=== PATIENT | female | born 1965 | race Two or more races ===

== ENCOUNTER 2018-09-10 04:55 | Emergency (ER) | payer SELFPAY ==
[~2018-09-10] VITALS: Ht 165.1 cm; Wt 86.5 kg
[2018-09-10 05:29] LABS: BASOPHILS % (AUTO) 0.4 % (0-1); EOSINOPHILS # (AUTO) 0.2 X10'3 (0-0.9); EOSINOPHILS % (AUTO) 1.4 % (0-6); HEMATOCRIT 40.2 % (35.0-45.0); HEMOGLOBIN 13.2 g/dl (12.0-16.0); MEAN CORPUSCULAR HEMOGLOBIN 26.9 PG (27.0-31.0); MEAN CORPUSCULAR HGB CONC 32.9 g/dL (33.0-36.5); MEAN CORPUSCULAR VOLUME 81.8 FL (78-98); MEAN PLATELET VOLUME 9.2 FL (7.4-10.4); MONOCYTES # (AUTO) 0.5 X10'3 (0-0.9); MONOCYTES % (AUTO) 4.2 % (2-12); NEUTROPHILS # (AUTO) 10.8 X10'3 (1.8-7.7); PLATELET COUNT 270 X10'3 (140-440); RED BLOOD COUNT 4.91 X10'6 (4.20-5.60); RED CELL DISTRIBUTION WIDTH 15.2 % (11.5-14.5); WHITE BLOOD COUNT 12.6 X10'3 (4.5-11.0)
--- NOTE | 2018-09-10 05:34 | NUR ---
AT BEDSIDE WITH PT
[2018-09-10 05:36] LABS: URINE HCG NEGATIVE (NEG)
[2018-09-10 05:40] LABS: CLARITY,URINE CLEAR (Clear); COLOR,URINE YELLOW (Yellow); GLUCOSE, URINE 500 mg/dl (Neg); KETONES,URINE 40 mg/dl (Neg); LEUKOCYTE ESTERASE ,URINE NEGATIVE (Neg); NITRITES, URINE NEGATIVE (Neg); OCCULT BLOOD,URINE TRACE-INTACT (Neg); PROTEIN,URINE 100 mg/dl (Neg)
[2018-09-10 05:44] LABS: ANION GAP 14 (8-16); BLOOD UREA NITROGEN 12 MG/DL (7-18); CHLORIDE 101 MMOL/L (99-107); CREATININE 0.73 MG/DL (0.40-0.90); GLUCOSE 239 MG/DL (70-104); POTASSIUM 3.4 MMOL/L (3.5-5.1); SODIUM 137 MMOL/L (135-145); TOTAL CARBON DIOXIDE 21.7 MMOL/L (24-32)
[2018-09-10 05:45] LABS: ALANINE AMINOTRANSFERASE 91 U/L (12-78); ALBUMIN 4.1 G/DL (3.4-5.0); ALBUMIN/GLOBULIN RATIO 1.1 (1.1-1.5); ALKALINE PHOSPHATASE 87 IU/L (46-116); AMYLASE 43 U/L (25-115); ASPARTATE AMINO TRANSFERASE 42 U/L (10-37); BILIRUBIN,TOTAL 0.8 MG/DL (0.1-1.0); BUN/CREATININE RATIO 16.4 (6.6-38.0); LIPASE 184 U/L (73-393); eGFR 84 ML/MIN
[2018-09-10] MEDS ORDERED: LORazepam 2 mg/ml vial IV ONE (05:45)
[2018-09-10] MEDS ORDERED: pantoprazole 40 MG vial IV ONE (05:45)
[2018-09-10] MEDS ORDERED: normal saline 1000ML IV soln IVB ONE (05:45)
[2018-09-10] MEDS ORDERED: morphine 4 MG/ML inj SYRINge IV ONE (05:45)
[2018-09-10] MEDS ORDERED: ondansetron/PF 4mg/2ml inj IV ONE (05:45)
[2018-09-10 05:47] LABS: UA COLLECTION TYPE CLN CATCH MIDSTREAM
[2018-09-10 05:49] LABS: BACTERIA,URINE 1+ /HPF (Neg); MUCUS STRANDS FEW /LPF (Neg); RBC,URINE 0-2 /HPF (0-2); SQUAMOUS EPITHELIAL CELL,UR MANY /LPF (FEW); WBC,URINE 0-4 /HPF (0-4)
[2018-09-10 05:51] LABS: PROTHROMBIN TIME 10.2 SECONDS (9.0-12.0)
[2018-09-10 06:43] VITALS: BP 151/83
[2018-09-10] MEDS ORDERED: PANT-47 PO (07:42)
[2018-09-10] MEDS ORDERED: ONDA8TAB13 PO (07:42)
[2018-09-10] MEDS ORDERED: HYDR-3965 PO (07:42)
== END 2018-09-10 09:05 | disposition home or self-care (01) ==
LOC: ER 04:56
DX: R10.11 Right upper quadrant pain (principal); R11.2 Nausea with vomiting, unspecified; R10.13 Epigastric pain; Z79.899 Other long term (current) drug therapy
CPT/HCPCS: 36415; 76700; 80053; 81001; 81025; 82150; 83690; 85025; 85610; 96361; 96374; 96375; 99284; C9113; J2060; J2270; J2405; J7030

== ENCOUNTER 2019-06-01 09:33 | Day surgery (SDC) | payer OTHER ==
[~2019-06-01 09:33] MED LIST: ONDA8TAB13 PO; PANT-47 PO
[2019-06-01] MEDS ORDERED: LIDOcaine 2% 5ml jelly ONE (10:13)
== END 2019-06-01 10:42 | disposition home or self-care (01) ==
LOC: WOUND CARE 09:33
PROVIDERS: ATTEND Surgery
DX: E11.622 Type 2 diabetes mellitus with other skin ulcer (principal); L97.221 Non-pressure chronic ulcer of left calf limited to breakdown of skin; L73.9 Follicular disorder, unspecified; J45.909 Unspecified asthma, uncomplicated; R21 Rash and other nonspecific skin eruption; Z79.899 Other long term (current) drug therapy
CPT/HCPCS: 82948; 87070; 87075; 87077; 87102; 87176; 87186; 97597; A4663; A6021; A6154; A6446

== ENCOUNTER 2020-01-19 17:16 | Emergency (ER) | payer OTHER ==
[~2020-01-19] VITALS: Ht 165.1 cm; Wt 80.9 kg
[2020-01-19] MEDS ORDERED: aspirin 81mg tab.chew PO ONE (17:20)
[2020-01-19 18:06] LABS: BASOPHILS % (AUTO) 0.4 % (0-1); EOSINOPHILS # (AUTO) 0.2 X10'3 (0-0.9); EOSINOPHILS % (AUTO) 2.3 % (0-6); HEMATOCRIT 34.1 % (35.0-45.0); HEMOGLOBIN 11.1 g/dl (12.0-16.0); LYMPHOCYTES # (AUTO) 1.7 X10'3 (1.1-4.8); LYMPHOCYTES % (AUTO) 20.4 % (21-51); MEAN CORPUSCULAR HEMOGLOBIN 27.2 PG (27.0-31.0); MEAN CORPUSCULAR HGB CONC 32.6 g/dL (33.0-36.5); MEAN CORPUSCULAR VOLUME 83.4 FL (78-98); MEAN PLATELET VOLUME 8.8 FL (7.4-10.4); MONOCYTES # (AUTO) 0.6 X10'3 (0-0.9); MONOCYTES % (AUTO) 6.8 % (2-12); NEUTROPHILS # (AUTO) 5.7 X10'3 (1.8-7.7); NEUTROPHILS % (AUTO) 70.1 % (42-75); PLATELET COUNT 245 X10'3 (140-440); RED BLOOD COUNT 4.09 X10'6 (4.20-5.60); RED CELL DISTRIBUTION WIDTH 14.6 % (11.5-14.5); WHITE BLOOD COUNT 8.1 X10'3 (4.5-11.0)
[2020-01-19 18:11] LABS: D-DIMER 0.29 MG/L FEU (0-0.50)
[2020-01-19 18:16] LABS: ALANINE AMINOTRANSFERASE 28 U/L (12-78); ALBUMIN 3.7 G/DL (3.4-5.0); ALBUMIN/GLOBULIN RATIO 1.1 (1.1-1.5); ALKALINE PHOSPHATASE 72 IU/L (46-116); ANION GAP 11 (8-16); ASPARTATE AMINO TRANSFERASE 16 U/L (10-37); BILIRUBIN,TOTAL 0.3 MG/DL (0.1-1.0); BLOOD UREA NITROGEN 15 MG/DL (7-18); BUN/CREATININE RATIO 20.3 (6.6-38.0); CALCIUM 8.5 MG/DL (8.5-10.1); CHLORIDE 107 MMOL/L (99-107); CREATININE 0.74 MG/DL (0.40-0.90); GLUCOSE 127 MG/DL (70-104); POTASSIUM 3.5 MMOL/L (3.5-5.1); SODIUM 144 MMOL/L (135-145); TOTAL PROTEIN 7.2 G/DL (6.4-8.2); eGFR 82 ML/MIN
[2020-01-19 18:22] LABS: MAGNESIUM 1.6 MG/DL (1.5-2.4)
[2020-01-19 18:42] VITALS: BP 158/92
== END 2020-01-19 18:46 | disposition home or self-care (01) ==
LOC: ER 17:16
DX: R07.81 Pleurodynia (principal); E11.9 Type 2 diabetes mellitus without complications; Z79.899 Other long term (current) drug therapy
CPT/HCPCS: 36415; 71045; 80053; 83735; 83880; 84484; 85025; 85379; 93005; 99285

== ENCOUNTER 2022-02-27 02:14 | Emergency (ER) | payer OTHER ==
[~2022-02-27] VITALS: Ht 165.1 cm; Wt 75.5 kg
[2022-02-27] MEDS ORDERED: metroNIDAZOLE-Flagyl 500mg/NS 100 ML IV STA (02:27)
[2022-02-27] MEDS ORDERED: normal saline 1000ML IV soln IVB ONE (02:30)
[2022-02-27] MEDS ORDERED: ondansetron/PF 4mg/2ml inj IV ONE (02:30)
[2022-02-27] MEDS ORDERED: morphine 4 MG/ML inj SYRINge IV ONE (02:30)
[2022-02-27 02:33] VITALS: BP 128/95
[2022-02-27] MEDS ORDERED: ONDA4TAB12 PO (03:24)
[2022-02-27] MEDS ORDERED: METR-159 PO (03:24)
[2022-02-27 03:31] LABS: BASOPHILS % (AUTO) 0.2 % (0-1); EOSINOPHILS % (AUTO) 0.4 % (0-6); HEMATOCRIT 42.6 % (35.0-45.0); HEMOGLOBIN 14.6 g/dl (12.0-16.0); LYMPHOCYTES # (AUTO) 0.8 X10'3 (1.1-4.8); LYMPHOCYTES % (AUTO) 17.3 % (21-51); MEAN CORPUSCULAR HEMOGLOBIN 32.4 PG (27.0-31.0); MEAN CORPUSCULAR HGB CONC 34.3 g/dL (33.0-36.5); MEAN CORPUSCULAR VOLUME 94.3 FL (78-98); MEAN PLATELET VOLUME 9.2 FL (7.4-10.4); MONOCYTES # (AUTO) 0.3 X10'3 (0-0.9); MONOCYTES % (AUTO) 7.7 % (2-12); NEUTROPHILS # (AUTO) 3.3 X10'3 (1.8-7.7); NEUTROPHILS % (AUTO) 74.4 % (42-75); PLATELET COUNT 185 X10'3 (140-440); RED BLOOD COUNT 4.52 X10'6 (4.20-5.60); WHITE BLOOD COUNT 4.4 X10'3 (4.5-11.0)
[2022-02-27 03:46] LABS: ALANINE AMINOTRANSFERASE 84 U/L (12-78); ALBUMIN 3.7 G/DL (3.4-5.0); ALKALINE PHOSPHATASE 79 IU/L (46-116); ANION GAP 11 (8-16); ASPARTATE AMINO TRANSFERASE 38 U/L (10-37); BILIRUBIN,TOTAL 0.5 MG/DL (0.1-1.0); BLOOD UREA NITROGEN 12 MG/DL (7-18); BUN/CREATININE RATIO 14.1 (6.6-38.0); CALCIUM 8.4 MG/DL (8.5-10.1); CHLORIDE 103 MMOL/L (99-107); CREATININE 0.85 MG/DL (0.40-0.90); GLUCOSE 317 MG/DL (70-104); LIPASE 118 U/L (73-393); POTASSIUM 3.9 MMOL/L (3.5-5.1); SODIUM 136 MMOL/L (135-145); TOTAL CARBON DIOXIDE 21.8 MMOL/L (24-32); TOTAL PROTEIN 7.5 G/DL (6.4-8.2); eGFR 70 ML/MIN
== END 2022-02-27 04:48 | disposition home or self-care (01) ==
LOC: ER 02:15
DX: K52.9 Noninfective gastroenteritis and colitis, unspecified (principal); E11.9 Type 2 diabetes mellitus without complications
CPT/HCPCS: 36415; 80053; 83690; 85025; 93005; 96365; 96375; 99284; J2270; J2405; J3490; J7030

== ENCOUNTER 2025-03-25 11:10 | Observation (INO) | payer OTHER ==
[~2025-03-25] VITALS: Ht 165.1 cm; Wt 79.5 kg
[~2025-03-25 11:10] MED LIST changes: +ONDA-243 PO; +ONDA-245 PO; -ONDA8TAB13 PO
[2025-03-25 11:31] LABS: MEAN PLATELET VOLUME 8.5 FL (7.4-10.4); RED CELL DISTRIBUTION WIDTH 12.7 % (11.5-14.5)
--- NOTE | 2025-03-25 11:31 | Physician Documentation ---
History of Present Illness General Chief Complaint: Stroke Alert Stated Complaint: FACIAL DROOPING Time Seen by MD: 11:31 Primary Medical Doctor: Dr. Pascual History of Present Illness Initial Comments Patient is a 59-year-old female who presents to the emergency room with a complaint of facial weakness on the right side and some slurred speech. Patient states she was looking in the mirror and noticed the drooping of her right side of her face at approximately 8:30 a.m. this morning. The patient denies any focal weakness other than the face. Patient denies any headache patient's symptoms are moderate and persistent. Patient has no history of stroke. The patient has no recent fevers chills nausea or vomiting or diarrhea. The patient states she has been placed on Augmentin for ear pain and she has a bump in her right ear canal she also states she was dizzy last night. Patient does have type 2 diabetes. She states she is feels slightly confused and she feels like she has slight difficulty with word finding. Medication Reconciliation Allergies: Coded Allergies: No Known Allergies (Unverified , 09/10/18) Scheduled Glimepiride* (Amaryl*), 1 TAB PO DAILY, (Reported) Insulin Degludec (Tresiba), 48 UNIT SQ HS, (Reported) Meloxicam (Meloxicam), 1 TAB PO DAILY, (Reported) Metformin HCl (Metformin HCl), 1 TAB PO BID, (Reported) Pantoprazole Sodium (PROTONIX tablet), 1 TAB PO DAILY Prednisone (Prednisone), 5 TAB PO DAILY Prednisone (Prednisone), 5 TAB PO DAILY Tirzepatide (Mounjaro), 2.5 MG SQ Q7D, (Reported) Valacyclovir HCl (Valacyclovir), 1 TAB PO Q8H Valacyclovir HCl (Valacyclovir), 1 TAB PO Q8H Scheduled PRN ONDANSETRON ODT 4mg tablet (Ondansetron Odt), 4 MG PO 5XD PRN for nausea Discontinued Medications Ondansetron 8mg ODT (Ondansetron Odt), 1 TAB PO Q6H Discontinued Reason: patient no longer taking Past Medical History Past Medical History: Diabetes Past Surgical History: noncontributory Alcohol Use: None Drug Use: none Lives In: Home Occupation: employed Review of Systems All Other Systems at this time: Reviewed and Negative Physical Exam Physical Exam Vital Signs: Temperature: 97.7, Source: Temporal, Heart Rate: 102, Respiratory Rate: 16, BP: 186/112, Pulse Oximetry: 100, Weight: 79.550 Physical Exam VITALS: Reviewed and as above. GENERAL: Alert, no apparent distress. HEENT: Normocephalic, atraumatic, PERRL, EOMI, dry mucosa, no erythema RESPIRATORY: Lungs clear, normal breath sounds, no respiratory distress. CHEST: No accessory muscle use, no retractions CV: Regular rate, rhythm, no edema, no murmur, No: JVD GI: Soft, non-tender, bowels sounds present, no rebound, guarding, or rigidity BACK: No CVA tenderness, or swelling MUSCULOSKELETAL: No deformities, no edema SKIN: Warm and dry, no rash NEURO: Oriented x4, No motor or sensory deficit patient does have some slight right facial weakness the patient can lift her eyebrows on both sides and it is unclear whether or not her forehead is involved I do not appreciate any significant forehead involvement. The otherwise her cranial nerves are intact in his strength is 5/5 in all four extremities. PSYCH: Normal mood and affect, no agitation Progress Results/Orders Results/Orders Orders - OHLATIF DEMPSEY MD Monitor (03/25/25 11:17) 2 Large Bore Ivs (03/25/25 11:17) Chest,Single View (03/25/25 11:42) Accucheck (03/25/25 11:17) Ct Stroke Alert (03/25/25 11:24) [place] Prov.Neuro Consult (03/25/25 11:17) Cta Neck/Head (03/25/25 11:33) Mri Head (03/25/25 15:30) Page Hospitalist (03/25/25 17:08) Fill Out Med Reconciliation (03/25/25 17:08) Completed Orders - OHLATIF DEMPSYE MD Cbc/Diff (03/25/25 11:17) Electrocardiogram (03/25/25 11:17) Chest,Single View (03/25/25 11:42) Ct Stroke Alert (03/25/25 11:24) BMP (03/25/25 11:17) PTT (03/25/25 11:17) Pt Inr (03/25/25 11:17) Cta Neck/Head (03/25/25 11:33) Mri Head (03/25/25 15:30) Acyclovir 800mg Tablet (Zovirax Tablet) (03/25/25 12:30) Urinalysis, Cult If Indicated (03/25/25 13:10) Hydrocodone/Apap 10/325 ([place] 10/325mg (03/25/25 14:20) Meclizine Tablets (Antivert Tablet) (03/25/25 17:10) Gadoterate Meglum 7.5mmol/15ml (Dotarem (03/25/25 18:01) Hgb A1c (03/25/25 11:18) Vital Signs 03/25/25 03/25/25 03/25/25 03/25/25 11:14 11:41 11:45 12:00 Temp 97.7 Pulse 102 97 100 95 Resp 16 18 B/P (MAP) 186/112 173/91 (118) 173/91 161/97 Pulse Ox 100 100 98 03/25/25 03/25/25 03/25/25 03/25/25 12:15 12:15 12:30 12:40 Pulse 97 97 97 Resp 17 19 B/P (MAP) 165/103 182/107 169/102 (124) Pulse Ox 99 95 03/25/25 03/25/25 03/25/25 03/25/25 12:45 13:00 13:15 13:30 Pulse 97 97 93 97 B/P (MAP) 169/102 168/102 171/103 163/99 Pulse Ox 98 97 93 03/25/25 03/25/25 03/25/25 03/25/25 13:40 13:45 14:00 14:15 Pulse 97 97 102 96 Resp 20 B/P (MAP) 157/101 (119) 157/101 167/114 160/106 03/25/25 03/25/25 03/25/25 03/25/25 14:30 14:42 14:43 16:15 Pulse 94 88 88 Resp 17 17 16 B/P (MAP) 137/86 147/87 (107) 155/86 (109) Pulse Ox 97 100 96 03/25/25 03/25/25 03/25/25/22/25 16:16 17:43 18:20 18:34 Pulse 91 91 98 Resp 16 15 16 16 B/P (MAP) 155/86 124/79 (94) 111/87 (95) Pulse Ox 97 98 98 Laboratory Tests Test 03/25/25 11:13 03/25/25 11:18 03/25/25 13:08 Glucometer 152 H White Blood Count 7.6 Red Blood Count 4.69 Hemoglobin 14.9 Hematocrit 42.8 Mean Corpuscular Volume 91.3 Mean Corpuscular Hemoglobin 31.8 H Mean Corpuscular Hemoglobin Concent 34.9 Red Cell Distribution Width 12.7 Platelet Count 208 Mean Platelet Volume 8.5 Neutrophils (%) (Auto) 76.0 H Lymphocytes (%) (Auto) 16.7 L Monocytes (%) (Auto) 6.0 Eosinophils (%) (Auto) 1.0 Basophils (%) (Auto) 0.3 Neutrophils # (Auto) 5.8 Lymphocytes # (Auto) 1.3 Monocytes # (Auto) 0.5 Eosinophils # (Auto) 0.1 Basophils # (Auto) 0.0 CBC Comment Prothrombin Time 10.3 INR International Normalized Ratio 1.0 Activated Partial Thromboplast Time 25 Coagulation Comments Sodium Level 139 Potassium Level 3.8 Chloride Level 103 Carbon Dioxide Level 27.7 Anion Gap 8 Blood Urea Nitrogen 14 Creatinine 0.87 Estimated GFR/1.73 m2 67 BUN/Creatinine Ratio 16.1 Glucose Level 158 H Hemoglobin A1c 11.3 H Calcium Level 9.2 Albumin 4.2 Chemistry Comments Urine Specimen Description Cln catch midstream Urine Color Yellow Urine Clarity Clear Urine pH 6.5 Urine Specific [place] <=1.005 Urine Protein Negative Urine Glucose (UA) 100 H Urine Ketones Trace H Urine Occult Blood Negative Urine Nitrite Negative Urine Bilirubin Negative Urine Urobilinogen 0.2 Urine Leukocyte Esterase Negative Urine Culture Indicated Not ind Volume Urine Centrifuged 10 ml Urine Comment EKG/XRAY/CT/US/VASC/MRI Chest X-Ray : Additional Comments Patient: MARIZA HOLLAND Medical Record: [id number] : 1965, Age: 59 Sex: Female Location: ER Patient Status: REG ER Service Date/Time: 03/25/25/ 1142 Ordering Physician: ATIF TRAN MD Exam: CHEST,SINGLE VIEW DI CHEST,SINGLE VIEW, HISTORY: Stroke Alert COMPARISON: None None TECHNICAL DATA: 1 view of the chest was obtained. FINDINGS: Lines and tubes: None Cardiomediastinal silhouette: normal Pulmonary vasculature: normal Lung expansion: normal Lung airspace: normal Lung interstitium: normal Pleura: normal Pneumothorax: no Bones: Unremarkable Other: no IMPRESSION: No acute intrathoracic abnormality. Electronically Signed by:COLT CALLE MD Date & Time: 03/25/251203 Dictated by: COLT CALLE MD Dictation date and time: 03/25/25 120 Primary Care Provider: NO PRIMARY CARE PROVIDER cc: ATIF TRAN MD ~ CT : Impression Patient: MARIZA HOLLAND Medical Record: [id number] : 1965, Age: 59 Sex: Female Location: ER Patient Status: [facility] ER Service Date/Time: 03/25/251123 Ordering Physician: ATIF TRAN MD Exam: CT STROKE ALERT CT CT STROKE ALERT Indication: Stroke Alert EXAM DATE: 03/25/2025 11:18 AM COMPARISON: None TECHNIQUE: CT of the head without intravenous contrast. RADIATION DOSE: CTDIvol: 67 mGy, DLP: 1192 mGy*cm FINDINGS: There is no intracranial hemorrhage. There is no extra-axial fluid, mass, mass effect or midline shift. The ventricles are midline and normal in size. Basilar cisterns are patent. Ellis-white differentiation is maintained. Mastoids well pneumatized. 1 cm right maxillary sinus mucosal retention cyst/ polyp.. Imaged portion of the orbits are unremarkable. IMPRESSION: No intracranial hemorrhage or mass effect. Electronically Signed by:VIV ANDRADE MD Date & Time: 03/25/25 114 Dictated by: VIV ANDRADE MD Dictation date and time: 03/25/251123 Primary Care Provider: NO PRIMARY CARE PROVIDER cc: ATIF TRAN MD ~ Medical Decision Making Findings The patient was brought into the emergency department for a complaint of facial weakness on the right side and some slight confusion and she was called a stroke alert on arrival to the emergency department. The patient had right-sided facial droop it was difficult to discern whether or not the forehead was involved. The patient does also complain of a painful lesion in her right here and also has had tearing from the right eye. 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 The patient was complaining of the significant vertigo that she has had over last several days and feels unsteady in her gait the patient was offered admission the patient will be admitted to the hospitalist service the prior hospitalizations were reviewed patient's MRI was reviewed patient's imaging of her head was also reviewed her CT scan was reviewed in her CTA was reviewed I have reviewed the radiologist's impression and agree with the impressions. The patient's chest x-ray was reviewed independently by myself and showed a normal mediastinum normal lung james and a normal cardiac silhouette. The patient's EKG was reviewed by me it demonstrated a sinus rhythm time of the EKG was 1146 the heart rate was 91 the EKG was a normal axis sinus rhythm with no abnormal ST segments or Q-waves it was interpreted as a normal EKG the patient's pulse oximetry was interpreted as normal and adequate and her radiation monitor was interpreted as a sinus rhythm. The patient did require critical care time as she was initially a stroke alert. Departure Admitted to Inpatient Unit: yes, to hospitalist Impression: Primary Impression: Dizziness Additional Impression: Nobles's palsy Referrals: NO PRIMARY CARE PROVIDER (PCP) Prescriptions Valacyclovir HCl (Valacyclovir) 1,000 Mg Tablet 1 TAB PO Q8H for 6 Days, #18 TAB 0 Refills Prov: MARK DAVIS DO 03/26/25 Prednisone (Prednisone) 10 Mg Tablet 5 TAB PO DAILY, #40 TAB 0 Refills Take 5 tab QD x 4 days then 4 tab QD x 2 days then 3 tab QD x 2 days then 2 tab QD x 2 days then 1 tab QD x 2 days, Prov: MARK DAVIS DO 03/26/25 Valacyclovir HCl (Valacyclovir) 1,000 Mg Tablet 1 TAB PO Q8H for 6 Days, #18 TAB 0 Refills Prov: MARK DAVIS DO 03/26/25 Prednisone (Prednisone) 10 Mg Tablet 5 TAB PO DAILY, #40 TAB 0 Refills Take 5 tab QD x 4 days then 4 tab QD x 2 days then 3 tab QD x 2 days then 2 tab QD x 2 days then 1 tab QD x 2 days, Prov: MARK DAVIS DO 03/26/25 Critical Care Note Total Time (mins): 35 Critical Care Note The very real possibility of a deterioration of this patient's condition required the highest level of my preparedness for sudden, emergent intervention. I provided critical care services, which included medication orders, frequent reevaluations of the patient's condition and response to treatment, ordering and reviewing test results, and discussing the case with various consultants. Excludes time spent performing separately billable procedures. The critical care time associated with the care of the patient was 35 minutes. Signature Scribe Signature: no scribe Attestation: The note accurately reflects work and decisions made by me.Atif Tran MD 03/27/25 22:42 ATIF TRAN MD Mar 25, 2025 11:31
[2025-03-25 11:39] LABS: CREATININE 0.87 MG/DL (0.40-0.90); TOTAL CARBON DIOXIDE 27.7 MMOL/L (24-32); eCRCL 64 ML/MIN; eGFR 67 ML/MIN
--- NOTE | 2025-03-25 11:40 | RADIOLOGY REPORT ---
CT CT STROKE ALERT Indication: Stroke Alert EXAM DATE: 03/25/2025 11:18 AM COMPARISON: None TECHNIQUE: CT of the head without intravenous contrast. RADIATION DOSE: CTDIvol: 67 mGy, DLP: 1192 mGy*cm FINDINGS: There is no intracranial hemorrhage. There is no extra-axial fluid, mass, mass effect or midline shif t. The ventricles are midline and normal in size. Basilar cisterns are patent. Ellis-white differentia tion is maintained. Mastoids well pneumatized. 1 cm right maxillary sinus mucosal retention cyst/ polyp.. Imaged portion of the orbits are unremarkable. IMPRESSION: No intracranial hemorrhage or mass effect.
[2025-03-25 11:43] LABS: APTT 25 SECONDS (22-32); INR 1.0 INR
--- NOTE | 2025-03-25 11:48 | ELECTROCARDIOGRAPH REPORT ---
[facility] Test Date: 2025-03-25 Test Time: 11:46:33 Pat Name: MARIZA HOLLAND Department: [facility]- Patient ID: [id number] Room: Gender: F Clerical Adjudicator: : 1965 Requested By: ATIF MARIN Order Number: [id number] Reading MD: Measurements Intervals Olds Rate: 91 P: 37 SC: 174 QRS: 36 QRSD: 93 T: 27 QT: 364 QTc: 448 Interpretive Statements Sinus rhythm Baseline wander in lead(s) I,III,aVL,V4,V5 Please click the below link to view image of tracing.
--- NOTE | 2025-03-25 11:56 | RADIOLOGY REPORT ---
CT CTA NECK/HEAD INDICATION: STROKE ALERT EXAM DATE: 03/25/2025 11:23 AM COMPARISON: CT CT STROKE ALERT on DOS: 03/25/25 RADIATION DOSE: CTDIvol: 16 mGy, DLP: 621 mGy*cm PROCEDURE: CT angiogram images were obtained of the head and neck. Coronal and sagittal reformatted i mages were created as well as 3D and/or MIP reconstructions. All CT scans at this medical facility are performed using dose modulation techniques as appropriate t o a performed exam including the following: Automated exposure control was utilized; adjustment of th e MA and/or KV according to patient size; and use of iterative reconstruction technique. FINDINGS: Head: Please see CT head from same day for further details. On the CT angiographic images, the internal carotid arteries are normal in caliber from the skull bas e to their bifurcations. The anterior and middle cerebral arteries and their branches appear normal. The anterior communicating artery appears normal. The bilateral posterior communicating arteries are not well seen and may be absent or hypoplastic. The vertebral arteries are codominant. The vertebral, basilar, superior cerebellar, and posterior cerebral arteries are normal in caliber. No aneurysm, ar teriovenous malformation, or stenosis is visible. Neck: The common carotid, internal carotid, external carotid, and vertebral arteries are normal in caliber. The left vertebral artery is dominant. The visualized intracranial arteries are normal. There is no evidence of contrast extravasation, filling defects, stenosis, or dissection. The pharynx and airway are normal. The thyroid, submandibular, and parotid glands appear unremarkable . No lymphadenopathy is seen. The visualized intracranial structures are unremarkable. IMPRESSION: No acute abnormal CT angiographic findings of the head and neck without large vessel occlusion or dis section.
--- NOTE | 2025-03-25 12:07 | RADIOLOGY REPORT ---
DI CHEST,SINGLE VIEW, HISTORY: Stroke Alert COMPARISON: None None TECHNICAL DATA: 1 view of the chest was obtained. FINDINGS: Lines and tubes: None Cardiomediastinal silhouette: normal Pulmonary vasculature: normal Lung expansion: normal Lung airspace: normal Lung interstitium: normal Pleura: normal Pneumothorax: no Bones: Unremarkable Other: no IMPRESSION: No acute intrathoracic abnormality.
--- NOTE | 2025-03-25 12:33 | [facility] CONSULT REPORT ---
[facility] Procedure Note [facility] Procedure Note Consult [facility] Note # Demographics Consult Type: Acute Stroke Level 1 (0-4.5 hrs) Patient Location: Emergency Room First Name: erika Last Name: SKYLER Date of : 1965 Age: 59 Gender: Female Facility: [facility] Time of Initial Page (): 03/25/2025 12:10 First Contact with Site (): 03/25/2025 12:10 # HPI History: Having difficulty brushing teeth today. Also noticed Drooling out of her mouth and word finding difficulty today. Ed noticed a vesicle in the left ear. But doesnt appear as herpetic lesion per Ed. Also complaining of dizziness over night. Sbp 180s in Ed Last Known Normal: 03/24 noon # Scores Time of exam and NIHSS (): 03/25/2025 12:20 Level of Consciousness 1a: [0] = Alert; keenly responsive LOC Questions 1b: [0] = Answers both questions correctly LOC Commands 1c: [0] = Performs both tasks correctly Best Gaze 2: [0] = Normal Visual 3: [0] = No visual loss Facial Palsy 4: [3] = Complete paralysis Motor Arm Left 5a: [0] = No drift Motor Arm Right 5b: [0] = No drift Motor Leg Left 6a: [0] = No drift Motor Leg Right 6b: [0] = No drift Limb Ataxia 7: [0] = Absent Sensory 8: [0] = Normal Best Language 9: [0] = No aphasia Dysarthria 10: [0] = Normal Extinction and Inattention 11: [0] = No abnormality NIHSS Total: 3 # Data Head CT: - no bleed - per radiologist read CTA Head: - no large vessel occlusion - per radiologist read # Assessment Impression: - Fe [employer] Palsy Clearly has bells palsy clinically but with the right ear lesion and reported word finding difficulty and dizziness needs MRI brain wwo to r/o infectious process. Acyclovir for now and steroids likely ok . # Plan Thrombolytic/Intervention: NOT IV Thrombolysis or IA Intervention candidate Thrombolytic Exclusion: > 4.5 hours Intraarterial Exclusion: - no large vessel occlusion (LVO) Target Blood Pressure: SBP < 180 Imaging: (urgency: routine): - MRI Brain with AND without contrast Other: - If patient has any neurological deterioration please call me back immediately - I have discussed my recommendations with the referring provider - would not pursue stroke work-up if MRI is negative # Logistics Attestation of consult completion: The patient is located at: [facility]. Facility staff participated in the visit. I performed this telemedicine visit from my offsite office utilizing interactive 2 way audio and visual telecommunication technology at the request of the onsite emergency room provider. Total time spent in telemedicine encounter: I spent 21 minutes reviewing clinical data and/or imaging, obtaining history, examining the patient, communicating with the onsite care team, and in preparation of this report. Critical Care time: 21 minutes of this encounter were critical care time. Due to a high probability of clinically significant, life-threatening neurologic deterioration, the patient required my highest level of preparedness to intervene emergently. I spent this critical care time managing the patient in conjunction with on-site providers who requested my consultation. In addition to the above, this critical care time included recommendation and review of studies, including imaging; arranging an urgent treatment and management plan with on-site providers; evaluation of patient's response to treatment; and documentation. This critical care time was performed to assess and manage the high probability of imminent, life-threatening deterioration that could result in neurologic catastrophe. # Demographics First Name: erika Last Name: SKYLER Facility: [facility] Electronically signed at 03/25/2025 12:33 ([place] Time) by Cisco Hernández MD Neuro Consult Order placed for: Yes LUIZ HERNÁNDEZ MD Mar 25, 2025 12:33
[2025-03-25 13:30] LABS: LEUKOCYTE ESTERASE ,URINE NEGATIVE (Neg); NITRITES, URINE NEGATIVE (Neg); OCCULT BLOOD,URINE NEGATIVE (Neg); UA COLLECTION TYPE CLN CATCH MIDSTREAM
[2025-03-25] MEDS ORDERED: TIRZ2.5P SQ (13:48)
[2025-03-25] MEDS ORDERED: MELO-102 PO (13:48)
[2025-03-25] MEDS ORDERED: GLIM4TAB7 PO (13:48)
[2025-03-25] MEDS ORDERED: METF-438 PO (13:48)
[2025-03-25] MEDS ORDERED: INSU100V41 SQ (13:49)
[2025-03-25] MEDS: HYDROcodone/acetaminophen 10/325mg tab PO ONE (14:42)
--- NOTE | 2025-03-25 16:25 | RADIOLOGY REPORT ---
MR MRI HEAD INDICATION: facial weakness with and without contrast EXAM DATE: 03/25/2025 03:01 PM COMPARISON: CT CTA NECK/HEAD on DOS: 03/25/25, CT CT STROKE ALERT on DOS: 03/25/25 PROCEDURE: Using a 1.5 Daniela scanner, multisequence multiplanar imaging of the brain was obtained. FINDINGS: The brainshows normal morphology and signal characteristics. No abnormal T2 hyperintensity, diffusion restriction, or susceptibility hypointensity is present. The ventricles are normal in size . The midline structures are intact. The major intracranial flow voids are present. The aerated space s are normal. The orbital contents and extracranial soft tissues appear normal. IMPRESSION: No acute abnormal MRI findings of the brain.
[2025-03-25] MEDS ORDERED: dextrose 50%-water 50ml dispensing syringe IV PRN ×2 (18:30)
[2025-03-25] MEDS ORDERED: HYDROcodone/acetaminophen 10/325mg tab PO PRN (18:30)
[2025-03-25] MEDS ORDERED: HYDROcodone/acetaminophen 5mg/325mg tablet PO PRN (18:30)
[2025-03-25] MEDS ORDERED: DEXTROSE 15 GM of carb/4 tabs (each vial/BOTTLE has 4 tablets) PO PRN ×2 (18:30)
[2025-03-25] MEDS ORDERED: potassium Cl 40MEQ/1/2NS 520ml 520 ML IV PRN (18:30)
[2025-03-25] MEDS ORDERED: magnesium sulf-water 2g/50mL 50 ML IV PRN (18:30)
[2025-03-25] MEDS ORDERED: HYDROmorphone inj. 0.5 MG/0.5 ML DISP.SYRIN IV PRN (18:30)
[2025-03-25] MEDS ORDERED: HYDROmorphone/PF 0.2 MG/ML SYRINGE IV PRN (18:30)
[2025-03-25] MEDS ORDERED: potassium Cl 20 mEq SR tablet PO PRN ×2 (18:30)
[2025-03-25] MEDS ORDERED: mag hydrox/Alum hydrox/simeth 30ml oral suspension PO PRN (18:30)
[2025-03-25] MEDS ORDERED: glucagon, human recombinant 1mg kit SUBCUT PRN (18:30)
[2025-03-25] MEDS ORDERED: magnesium sulf-water 4G/100mL 100 ML IV PRN (18:30)
[2025-03-25] MEDS ORDERED: magnesium hydroxide 30ml (MOM) UD suspension PO PRN (18:30)
[2025-03-25] MEDS: GADOTERATE MEGLUMINE 7.5 MMOL/15 ML VIAL IV ONE (18:41)
--- NOTE | 2025-03-25 18:55 | HISTORY AND PHYSICAL ---
History & Physical Providers to CC ~ History of Present Illness Reason for Admit\Complaint: Right-sided facial droop/dizziness/mild confusion History of Present Illness This is a 59-year-old female who noticed drooping of the right side of her face at 08:30 this morning. The patient was trying to swallow water in his that was she was drooling on her right side she also has a mild delayed closure of her right eyelid the patient also noticed that she has been dizzy since last evening. The patient states that she has a had bronchitis for one month in his sinus infection one month which has finally resolved she has been seen by an ENT specialist and there was a painful lesion in her right ear the patient was placed on Augmentin which has not helped. Allergies: Coded Allergies: No Known Allergies (Unverified , 09/10/18) Home Medications Home Medications Active Ondansetron Odt (Ondansetron HCl) 4 Mg Tab.rapdis 4 Mg PO 5XD PRN PROTONIX tablet (Pantoprazole Sodium) 40 Mg Tablet.dr 1 Tab PO DAILY 30 Days Reported Tresiba (Insulin Degludec) 100 Unit/Ml Vial 48 Unit SQ HS Meloxicam 15 Mg Tablet 1 Tab PO DAILY 30 Days Mounjaro (Tirzepatide) 2.5 Mg/0.5 Ml Pen.injctr 2.5 Mg SQ Q7D Amaryl* (Glimepiride) 4 Mg Tablet 1 Tab PO DAILY 30 Days Metformin HCl 1,000 Mg Tablet 1 Tab PO BID 30 Days Past Medical History Past Medical History Hypertension, type 2 diabetes mellitus Past Surgical History Surgical History Comment DEANA, anterior repair, , rhinoplasty Family History Family History: FH: diabetes mellitus FATHER (Myxoma) MOTHER FH: hypertension FATHER (Myxoma) MOTHER FH: throat cancer FATHER (Myxoma) Past Social History Social History Comment Patient denes history of smoking/ drinking alcohol nor any illicit drug use DNR Code Status ROS ROS Except for positives in the HPI the rest of the 14 point review systems is negative Exam Vitals: Vital Signs Date Time Temp Pulse Resp B/P (MAP) Pulse Ox O2 Delivery O2 Flow Rate FiO2 03/25/25 18:34 98 16 111/87 (95) 98 03/25/25 11:14 97.7 General: Gen. No acute distress alert and oriented 4 HEENT: Right-sided facial droop, mild right-sided lid lag Lungs clear to ascultation bilaterally, no wheezes rales or rhonchi appreciated Heart normal sinus rhythm no murmurs rubs or clicks noted Abdomen soft nontender bowel sounds are normoactive Lower extremities no clubbing cyanosis, nor edema appreciated bilaterally Diagnostic Data Last Recorded Lab Results: 03/25/25 1118 03/25/25 1118 Diagnostic Data: Laboratory Tests Test 03/25/25 11:18 Prothrombin Time 10.3 SECONDS (9.0-12.0) INR International Normalized Ratio 1.0 INR Activated Partial Thromboplast Time 25 SECONDS (22-32) Coagulation Comments Advance Care Planning Advanced Care plannin - 30 Minutes Problems: (1) Dizziness Status: Acute Additional Plan # dizziness # mild confusion # right-sided facial droop Evaluated by Adithya Perez tele neurologist who recommended stroke workup however 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 MRI of the head is negative CTA of the head and neck is negative for any significant large vessels occlusions Orthostatic vital signs Start treatment for Nobles's palsy: Prednisone 50 mg daily x5 days and we will need a tapering dose after completion of five day 50 mg daily dose Valacyclovir 1000 mg t.i.d. x7 days. The patient is admitted on a threat monitoring analyst # significant ear pain 5 mm in diameter macule appreciated in the distal outer ear canal inferiorly IV Toradol 30 mg Q 8 hours x3 days Lidocaine jelly t.i.d. applied to outer inferior ear canal # type 2 diabetes mellitus Hyper and hypoglycemic protocol # hypertension The patient does not have antihypertensive medications listed on med rec Monitor Q shift # DVT prophylaxis SCDs SQ Lovenox I spent a total of 17 minutes on reviewing various resuscitative measures/ ACP with the patient at the time of admission. The patient has decided on DNR code status Date of Service: Mar 25, 2025 Billing Provider: MARK DAVIS DO Common Visit Codes: 55537-XHFBSRP INP/OBS CARE (HIGH) Secondary Visit Codes: 68540-AUWSUEXN CARE PLAN 30 MINUTES MARK DAVIS DO Mar 25, 2025 18:55
[2025-03-25] MEDS: ketorolac trometh 30MG/ML vial 30 MG/ML VIAL IV SCH (19:10)
[2025-03-25] MEDS: enoxaparin 40mg/0.4ml syringe SQ SCH (19:11)
[2025-03-25 20:00] VITALS: BP_SYST 142; BP_SYST 143; BP_SYST 144; BP_DIAS 83; BP_DIAS 84; BP_DIAS 86; PULSE 103; PULSE 108; PULSE 94
[2025-03-25] MEDS: K and/or MAG REPLACEMENT MC SCH (20:00)
[2025-03-25] MEDS: docusate sod 100mg capsule PO SCH (20:00)
[2025-03-25] MEDS: normal saline 1000ml 1,000 ML IV SCH (20:00)
[2025-03-25 20:35] VITALS: BP 147/86; PULSE 78; RESP 16; TEMP 94.4; O2SAT 94
[2025-03-25] MEDS: LidoCAINE 2% Topical Jelly 11mL syringe (UROJET) MM SCH (20:45)
[2025-03-25] MEDS: INSULIN LISPRO 100 UNIT/ML INSULN.PEN MULTI-DOSE SQ SCH (20:58)
[2025-03-25 21:00] VITALS: RESP 14; O2SAT 95
[2025-03-25 22:00] VITALS: BP 144/83; PULSE 82; RESP 14; TEMP 98.2; O2SAT 95
[2025-03-26 03:42] VITALS: TEMP 97.7
[2025-03-26 06:02] LABS: MEAN PLATELET VOLUME 8.4 FL (7.4-10.4); RED CELL DISTRIBUTION WIDTH 12.4 % (11.5-14.5)
[2025-03-26 06:24] VITALS: BP 135/69; PULSE 77; RESP 15; TEMP 97.9; O2SAT 96
[2025-03-26 06:39] LABS: CREATININE 1.01 MG/DL (0.40-0.90); TOTAL CARBON DIOXIDE 25.4 MMOL/L (24-32); eCRCL 55 ML/MIN; eGFR 56 ML/MIN
[2025-03-26] MEDS: ondansetron/PF 4mg/2ml inj IV PRN (07:06)
[2025-03-26 07:10] VITALS: BP 147/92; PULSE 88; RESP 15; O2SAT 98
[2025-03-26] MEDS: pantoprazole 40mg Tablet.DR PO SCH (07:56)
[2025-03-26 08:00] VITALS: RESP 15
[2025-03-26 10:18] VITALS: BP_SYST 141; BP_SYST 144; BP_SYST 149; BP_DIAS 91; BP_DIAS 93; BP_DIAS 94; PULSE 84; PULSE 89; PULSE 92
[2025-03-26] MEDS ORDERED: VALA100031 PO (11:51)
[2025-03-26] MEDS ORDERED: PRED10TA PO (11:51)
[2025-03-26 13:04] VITALS: BP 149/93; PULSE 89; RESP 14; TEMP 97.2; O2SAT 100
--- NOTE | 2025-03-26 20:25 | DISCHARGE SUMMARY ---
Discharge Summary Providers to CC ~ Discharge Summary Admission Diagnosis: Dizziness Hospital Course DATE OF ADMISSION: 03/25/2025 DATE OF DISCHARGE: 03/26/2025 Discharge Diagnosis\Comment: Nobles's palsy, dizziness, significant right ear pain, type 2 diabetes mellitus, hypertension Operations\Procedures: None Consultants: Dr. Adithya Perez tele neurologist Complications: None Condition on DC: Stable New Medications: Prednisone (Prednisone) 10 Mg Tablet 5 TAB PO DAILY, #40 TAB 0 Refills Take 5 tab QD x 4 days then 4 tab QD x 2 days then 3 tab QD x 2 days then 2 tab QD x 2 days then 1 tab QD x 2 days, Prednisone (Prednisone) 10 Mg Tablet 5 TAB PO DAILY, #40 TAB 0 Refills Take 5 tab QD x 4 days then 4 tab QD x 2 days then 3 tab QD x 2 days then 2 tab QD x 2 days then 1 tab QD x 2 days, Valacyclovir HCl (Valacyclovir) 1,000 Mg Tablet 1 TAB PO Q8H for 6 Days, #18 TAB 0 Refills Valacyclovir HCl (Valacyclovir) 1,000 Mg Tablet 1 TAB PO Q8H for 6 Days, #18 TAB 0 Refills Continued Medications: Glimepiride* (Amaryl*) 4 Mg Tablet 1 TAB PO DAILY for 30 Days, #30 TAB Insulin Degludec (Tresiba) 100 Unit/Ml Vial 48 UNIT SQ HS Meloxicam (Meloxicam) 15 Mg Tablet 1 TAB PO DAILY for 30 Days, #30 TAB 0 Refills Metformin HCl (Metformin HCl) 1,000 Mg Tablet 1 TAB PO BID for 30 Days, #60 TAB 0 Refills ONDANSETRON ODT 4mg tablet (Ondansetron Odt) 4 Mg Tab.rapdis 4 MG PO 5XD PRN for nausea, #20 TAB Pantoprazole Sodium (PROTONIX tablet) 40 Mg Tablet.dr 1 TAB PO DAILY for 30 Days, #30 TAB Tirzepatide (Mounjaro) 2.5 Mg/0.5 Ml Pen.injctr 2.5 MG SQ Q7D Discharge Summary: I admitted Ms. Sinha with the following HPI:This is a 59-year-old female who noticed drooping of the right side of her face at 08:30 this morning. The patient was trying to swallow water in his that was she was drooling on her right side she also has a mild delayed closure of her right eyelid the patient also noticed that she has been dizzy since last evening. The patient states that she has a had bronchitis for one month in his sinus infection one month which has finally resolved she has been seen by an ENT specialist and there was a painful lesion in her right ear the patient was placed on Augmentin which has not helped. The patient is MRI of the head was negative and CTA of the head and neck was negative for any large vessel occlusions The patient is orthostatic vital signs were negative The patient is treated with 50 mg of prednisone and was stable and was discharged with additional four days of 50 mg prednisone and then a tapering dose please see prescription for further details, the patient also received siobhan acyclovir 1000 mg t.i.d. and received a prescription for additional six days of valacyclovir. The patient has facial droop was essentially unchanged from that when I evaluated the patient in the ED. The patient does have hypertension in her blood pressure was under acceptable control during hospitalization Gen. No acute distress alert and oriented 4 HEENT: Right-sided facial droop, mild right-sided lid lag Lungs clear to ascultation bilaterally, no wheezes rales or rhonchi appreciated Heart normal sinus rhythm no murmurs rubs or clicks noted Abdomen soft nontender bowel sounds are normoactive Lower extremities no clubbing cyanosis, nor edema appreciated bilaterally The patient felt ready to be discharged and was medically cleared to be discha rged on 03/26/2025 The patient was seen and evaluated on day of discharge. Time spent on discharge 40 minutes *Problems/Diagnosis: (1) Dizziness Status: Acute Total Time Spent on D/C: > 30 Minutes Date of Service: Mar 26, 2025 Billing Provider: MARK DAVIS DO Common Visit Codes: 04994-XPK/OBS DISCH DAY >30min MARK DAVIS DO Mar 26, 2025 20:25
== END 2025-03-26 14:25 | disposition home or self-care (01) ==
LOC: ER 11:10 → ED HOLD 18:44 → INTOOBSV 18:44 → ORTHO 4S 20:28
PROVIDERS: ADMIT Family Medicine; ATTEND Family Medicine
DX: G51.0 Bell's palsy (principal); R42 Dizziness and giddiness; R47.81 Slurred speech; E11.9 Type 2 diabetes mellitus without complications; I10 Essential (primary) hypertension; H92.01 Otalgia, right ear; R79.1 Abnormal coagulation profile; Z79.84 Long term (current) use of oral hypoglycemic drugs; Z79.4 Long term (current) use of insulin; Z87.891 Personal history of nicotine dependence; Z79.899 Other long term (current) drug therapy
CPT/HCPCS: 36415; 70450; 70496; 70498; 70553; 71045; 80048; 80053; 81003; 82948; 83036; 83735; 85025; 85610; 85730; 87081; 93005; 96361; 96372; 96374; 96375; 96376; 99291; G0378; J1650; J1815; J1885; J2405; J3420; J7030; J7512; J8597; Q9967